=== PATIENT | male | born 1980 | race African-American/Black ===

== ENCOUNTER 2025-02-28 08:37 | Emergency (ER) | payer OTHER, SELFPAY ==
[2025-02-28 08:40] VITALS: BP 132/95
[2025-02-28 09:02] VITALS: BP 142/76; BMI 26.6
--- NOTE | 2025-02-28 09:26 | ED.GENMED ---
History of Present Illness
<BRENDA Cain Last Filed: 02/28/25 16:51>
General
Chief Complaint: Fall
Source: patient
Exam Limitations: none
Time Seen by Provider: 02/28/25 08:42
Nursing documentation reviewed up to this point in time: agreed with
History of Present Illness
History of Present Illness:
see MDM
Review of Systems
<BRENDA Cain Last Filed: 02/28/25 16:51>
Review of Systems
Allergies reviewed?: Yes
All Other Systems: Not applicable
Phy Exam
<BRENDA Cain Last Filed: 02/28/25 16:51>
Physical Exam
Physical Exam:
GENERAL: Alert , in no apparent distress
HEAD: Right sided superior orbital laceration approximately 1.25 cm through the eyebrow, no active bleeding, mild soft tissue hematoma around the laceration without any bony orbital tenderness
NECK: no midline tenderness, active ROM intact, no paraspinal muscle tenderness;
EYE: pupils equal and reactive, EOMs intact. No hyphema
ENT: o/p clr, mmm. no hemotympanum
CARDIAC: Regular rate and rhythm, no edema
LUNGS: Clear breath sounds bilaterally, no acute respiratory distress, no wheezes/rales/rhonchi
ABDOMEN: Soft, without focal tenderness, no r/g, no cvat
NEUROLOGICAL: Alert and oriented x 4, no focal neuro deficits, CN intact, 5/5 strength, sensation intact
SKIN: Warm and dry, laceration as above
MUSCULOSKELETAL: Right elbow nontender, full painless range of motion, right knee slight soft tissue hematoma anterior patella, full range of motion, no laxity on varus or valgus stress, negative anterior and posterior drawer
PSYCH: Normal and appropriate interaction.
Course
<BRENDA Cain Last Filed: 02/28/25 16:51>
Orders/Labs/Results
Orders:
Orders
02/28/25 08:58
CR Knee- Right 4 Or More View* Urgent
Comment:
Reason For Exam: R knee pain afte rfall
Vital Signs
Initial and Last Documented VS:
Initial Vital Signs
Temp Pulse Resp BP Pulse Ox
36.7 C 80 18 132/95 99
02/28/25 08:40 02/28/25 08:40 02/28/25 08:40 02/28/25 08:40 02/28/25 08:40
Last Documented Vital Signs
Temp Pulse Resp BP Pulse Ox
36.9 C 82 20 142/76 99
02/28/25 09:02 02/28/25 09:02 02/28/25 09:02 02/28/25 09:02 02/28/25 09:29
<Lacie Henson MD - Last Filed: 02/28/25 09:41>
Orders/Labs/Results
Orders:
Orders
02/28/25 08:58
CR Knee- Right 4 Or More View* Urgent
Comment:
Reason For Exam: R knee pain afte rfall
Vital Signs
Initial and Last Documented VS:
Initial Vital Signs
Temp Pulse Resp BP Pulse Ox
36.7 C 80 18 132/95 99
02/28/25 08:40 02/28/25 08:40 02/28/25 08:40 02/28/25 08:40 02/28/25 08:40
Last Documented Vital Signs
Temp Pulse Resp BP Pulse Ox
36.9 C 82 20 142/76 99
02/28/25 09:02 02/28/25 09:02 02/28/25 09:02 02/28/25 09:02 02/28/25 09:29
Procedures
<Diana Stanford PA-C - Last Filed: 02/28/25 16:51>
Laceration Closure
Left Eye brow:
Status of Wound: clean
Size of Wound in cm: 1.25
Description of Wound Edges: sharp
Preparation: cleaned with saline
Revision/Debridement: routine- no revision
Type of Closure: single layer closure and Dermabond-skin glue
<Diana Stanford PA-C - Last Filed: 02/28/25 16:51>
MDM/Problems Addressed
Differential Diagnosis Includes:
See MDM
MDM/Problems Addressed:
Note:
CHIEF COMPLAINT(S)
- Head laceration and injuries following a fall.
HISTORY OF PRESENT ILLNESS
The patient is a 44-year-old male who reports sustaining injuries following a fall around 1 hour ago, which occurred after leaving the restroom this morning. He thinks he just tripped and fell onto his knee, right elbow and hit his head. The
patient reports consuming alcohol the night before the fall but was not intoxicated. There was no loss of consciousness, and the patient was able to rise without assistance. He is not on any anticoagulation
The patient mentions pain in the right knee and right elbow, with the left side described as feeling unusual. There has been no vomiting, dizziness, vision changes, or difficulty walking. The patient�s brother is one of our cardiologists suggested
the head laceration might require adhesive closure, rather than sutures.
The patient denies any chronic medical conditions and past significant injuries. Upon further discussion, it was determined that the laceration could be managed with adhesive strips and skin glue.
PAST MEDICAL AND SURIGICAL HISTORY
- No chronic medical conditions reported.
IMMUNIZATION HISTORY
- Last tetanus booster was approximately three years ago.
REVIEW OF SYSTEMS
- Neurological: Denies loss of consciousness, vomiting, dizziness, vision changes, or confusion.
- Musculoskeletal: Reports right elbow and right knee pain; unusual sensation in the left side following the fall.
- Integumentary: Laceration on the head requiring closure.
PHYSICAL EXAM
See MDM
PLAN
- Adhesive strips and skin glue will be used for laceration care.
- Conduct an X-ray of the knees to assess for any injury.
- Discuss shared medical decision-making regarding the need for a CT scan of the head; patient opted against it unless symptoms worsen.
- If experiencing worsening symptoms or new concerns, return for re-evaluation.
- Recommend ibuprofen for pain management, with advice to use acetaminophen instead if needed due to head trauma.
- No need for immediate tetanus booster, but recommended within the next year.
DIFFERENTIAL DIAGNOSIS
The Differential Diagnosis includes, in no particular order and is not limited to:
1. Concussion
2. Superficial head laceration
3. Contusion of the right elbow
4. Contusion of the right knee
5. Musculoskeletal strain
6. Soft tissue injury
7. Traumatic brain injury (ruled out with current symptoms)
8. Alcohol-related falls
9. Closed head injury
10. Subgaleal hematoma
44-year-old male no medical problems a mechanical trip and fall this morning while at his brother's house for [employer], says he woke up and use the bathroom, exiting the bathroom he tripped and fell and hit his knee on the right, elbow on the right
and left face on the ground. Patient had no loss of consciousness. He was able to get back up. He has a left eyebrow laceration and right knee pain, minimal right elbow pain. On exam the laceration is about 1.25 cm linear in the left eyebrow
with a little bit of soft tissue swelling but no bony tenderness, neuro was intact. He has no concussive signs at this time. shared medical decision making regardingBrain imaging which he declined and I felt was reasonable
Wound was irrigated and repaired by using glue and Steri-Strips, well-approximated
His x-ray independently reviewed by me was negative for trauma but there was a bone lesion, seen by radiology, distal femur. Patient was informed of this and told to follow-up with an outpatient orthopedist. Make sure that there was no need for
biopsy. Return for any concerns
<Diana Stanford PA-C - Last Filed: 02/28/25 16:51>
*Pulse Oximetry
SaO2: 99
Oxygen Mode of Delivery: Room air
Patient hypoxic: no (99)
*Critical Care Note
Total Time (30-74mins, 75-104mins- exclusive of procedures): Not Applicable
ED Attending Note
<Diana Stanford PA-C - Last Filed: 02/28/25 16:51>
-
Portions of this chart may have been created with voice recognition software.� Occasional wrong word or��sound alike� substitutions may have occurred due to the inherent limitations of voice recognition software.
<Lacie Henson MD - Last Filed: 02/28/25 09:41>
ED Attending Note
Patient seen and examined by attending physician: Yes
I performed the substantive portion of visit, reviewed & personally made and approve the management plan that is documented in note by myself or ANNABEL.: Yes
ED Attending Note:
44-year-old male who suffered a mechanical fall going to the bathroom. He did hit his head although no loss of consciousness and no blood thinner use. He has a superficial linear laceration noted lateral aspect of left eyebrow. Grossly
neurologically intact. X-ray reviewed, patient made aware regarding finding that requires close follow-up. Wound will be repaired after being cleaned, closed head injury instructions, etc.
Discharge Plan
Departure
Patient Disposition: Home (Routine Discharge)
Date of Disposition: 02/28/25
Time of Disposition: 09:47
Patient with high blood pressure during this ER visit?: Yes
Discharge Problem:
Contusion of face, Eyebrow laceration
Instructions: Laceration Repair With Glue (DC), Head Injury in Adults (DC), Contusion (DC), BLOOD PRESSURE
Prescriptions:
No Action
No Current Medications
0
Activity Restrictions/Additional Instructions:
KEEP THE WOUND CLEAN AND DRY FOR 48 hours
After that you can get it wet
The glue and Steri-Strip will peel up and fall off
You can take Tylenol for pain
You may have a minor head injury, you had no obvious signs of a concussion, these can be delayed in onset, with headache plus fatigue, nausea, dizziness, brain fog, confusion etc. If you develop any of the symptoms you may return for evaluation.
If you get the worst headache of your life, repeated vomiting, confusion etc. you should be seen immediately
We would likely expect to see the symptoms develop within 6 hours from the onset of the injury
Regarding your knee the x-ray was negative for any trauma but there was a bone lesion that was seen on the x-ray that likely is a benign density within your distal femur bone. But you should be seen by orthopedics for follow-up for this. They may
do further testing to prove that it is benign.
You can Vishal wrap your knee, take it off at night, ice off-and-on
WATCH FOR SIGNS OF INFECTION OF YOUR WOUND AND RETURN NEEDED FOR PAIN, SWELLING, REDNESS, DRAINAGE, BLEEDING.
Interventions
Interventions:
*General Assessment Last Done: 02/28/25 09:02
*Neglect/Abuse Screening Last Done: 02/28/25 09:02
*ED COVID-19 Vaccine History Last Done: 02/28/25 08:40
*ED Influenza Vaccine History Last Done: 02/28/25 08:40
[facility] Fall Risk Assessment Tool Last Done: 02/28/25 09:02
*Risk Screen - Suicide (C-SSRS) Last Done: 02/28/25 09:02
*Nursing Disposition Last Done: 02/28/25 10:03
ED-Musculoskeletal Assessment Last Done: 02/28/25 09:02
ED- Neurological Assessment Last Done: 02/28/25 09:02
ED-Skin Assessment Last Done: 02/28/25 09:02
Discharge Date and Time
Discharge Date/Time: 02/28/25 10:05
Print Language: SENEGALESE
== END 2025-02-28 10:05 | disposition home or self-care (01) ==
LOC: EMR 08:37
PROVIDERS: EMERGENCY PHYSICIAN Emergency Medicine
DX: S01.112A Laceration without foreign body of left eyelid and periocular area, initial encounter (principal); W01.0XXA Fall on same level from slipping, tripping and stumbling without subsequent striking against object, initial encounter; Y93.01 Activity, walking, marching and hiking; Y92.002 Bathroom of unspecified non-institutional (private) residence as the place of occurrence of the external cause; M89.9 Disorder of bone, unspecified
CPT/HCPCS: 99283; 12011; 73564